=== PATIENT | male | born 1990 | race African-American/Black ===

== ENCOUNTER 2017-07-26 13:54 | Emergency (ER) | payer OTHER ==
[2017-07-26] MEDS ORDERED: Ketorolac INJ* 30 MG/ML 1 ML VIAL IV PUSH ONE (14:16)
--- NOTE | 2017-07-26 14:48 | RAD ---
Indication: Chest pain. Single frontal view of the chest performed at 1420 was reviewed. No prior study is available for comparison. No mediastinal shift is noted. Heart is of normal size and configuration. Lung flores appear clear. IMPRESSION: NO ACTIVE CARDIOPULMONARY DISEASE IS NOTED.
[2017-07-26 14:53] LABS: Hematocrit 44 % (42-52); Hemoglobin 14.8 g/dl (14.0-18.0); Mean Corpuscular HGB Conc 34 g/dl (31-36); Mean Corpuscular Hemoglobin 27 pg (27-31); Mean Corpuscular Volume 81 fL (80-94); Mean Platelet Volume 7 um3 (7.4-10.4); Red Blood Count 5.42 10^6/ul (4.0-5.4); Red Cell Distribution Width 13 % (10.5-15); White Blood Count 8.4 10^3/ul (3.5-10.8)
[2017-07-26 15:14] LABS: Albumin 3.9 g/dL (3.2-5.2); BUN/Creatinine Ratio 10.8 (8-20); Calcium 9.6 mg/dL (8.6-10.3); EGFR African American 111.8 (>60); Globulin 2.9 g/dL (2-4); Potassium 4.2 mmol/L (3.5-5.0); Total Bilirubin 1.7 mg/dL (0.2-1.0); Total Protein 6.8 g/dL (6.4-8.9)
[2017-07-26 18:07] VITALS: BP 122/85
--- NOTE | 2017-07-26 18:53 | ED ---
Estiven Weathers Angela, scribed for Misael Anthony MD on 07/26/17 at 1412 . HPI Chest Pain - HPI Summary HPI Summary: This pt is a 27 y/o male presenting to [facility] c/o mid sternal chest pain today. Pt reports back pain with radiation to his chest. Pt notes that his pain is aggravated with laughing, taking a deep breath, and movement. Pt describes his pain as sharp when moving. With rest, pt describes his pain as discomfort and chest pressure. He denies SOB, abd pain. Pt denies doing any heavy lifting. He states he has been running lately and has not experienced any chest pain while running. Pt denies any PMHx. - History of Current Complaint Chief Complaint: EDChestPainROMI Time Seen by Provider: 07/26/17 14:10 Hx Obtained From: Patient Onset/Duration: Started Days Ago, Atraumatic, Still Present Timing: Lasting Days Initial Severity: Moderate Current Severity: Moderate Pain Intensity: 5 Pain Scale Used: 0-10 Numeric Chest Pain Location: Mid Sternal - Allergy/Home Medications Allergies/Adverse Reactions: Allergies Allergy/AdvReac Type Severity Reaction Status Date / Time No Known Allergies Allergy Verified 07/26/17 14:58 PMH/Surg Hx/FS Hx/Imm Hx Endocrine/Hematology History: Denies: Hx Diabetes Cardiovascular History: Denies: Hx Hypertension Infectious Disease History: No Infectious Disease History: Denies: Traveled Outside the [place] in Last 30 Days - Family History Known Family History: Positive: Hypertension - grandmother - Social History Alcohol Use: Occasionally Substance Use Type: Reports: None Smoking Status (MU): Never Smoked Tobacco Review of Systems Negative: Fever, Chills Positive: Chest Pain Negative: Shortness Of Breath Positive: Other - back pain All Other Systems Reviewed And Are Negative: Yes Physical Exam - Summary Physical Exam Summary: VITAL SIGNS: Reviewed. GENERAL: Patient is a well-developed and nourished male who is lying comfortable in the stretcher. Patient is not in any acute respiratory distress. HEAD AND FACE: No signs of trauma. No ecchymosis, hematomas or skull depressions. No sinus tenderness. EYES: PERRLA, EOMI x 2, No injected conjunctiva, no nystagmus. EARS: Hearing grossly intact. Ear canals and tympanic membranes are within normal limits. MOUTH: Oropharynx within normal limits. NECK: Supple, trachea is midline, no adenopathy, no JVD, no carotid bruit, no c- spine tenderness, neck with full ROM. CHEST: Symmetric. There is reproducible chest pain at palpation. LUNGS: Clear to auscultation bilaterally. No wheezing or crackles. CVS: Regular rate and rhythm, S1 and S2 present, no murmurs or gallops appreciated. ABDOMEN: Soft, non-tender. No signs of distention. No rebound no guarding, and no masses palpated. Bowel sounds are normal. EXTREMITIES: FROM in all major joints, no edema, no cyanosis or clubbing. NEURO: Alert and oriented x 3. No acute neurological deficits. Speech is normal and follows commands. SKIN: Dry and warm Triage Information Reviewed: Yes Vital Signs On Initial Exam: Initial Vitals Temp Pulse Resp BP Pulse Ox 97.8 F 88 100 139/81 100 07/26/17 13:58 07/26/17 13:58 07/26/17 13:58 07/26/17 13:58 07/26/17 13:58 Vital Signs Reviewed: Yes Diagnostics - Vital Signs Vital Signs Temp Pulse Resp BP Pulse Ox 07/26/17 13:58 97.8 F 88 100 139/81 100 - Laboratory Lab Results: Lab Results 07/26/17 07/26/17 07/26/17 Range/Units 14:44 14:44 14:44 WBC 8.4 (3.5-10.8) 10^3/ul RBC 5.42 H (4.0-5.4) 10^6/ul Hgb 14.8 (14.0-18.0) g/dl Hct 44 (42-52) % MCV 81 (80-94) fL MCH 27 (27-31) pg MCHC 34 (31-36) g/dl RDW 13 (10.5-15) % Plt Count 228 (150-450) 10^3/ul MPV 7 L (7.4-10.4) um3 Neut % (Auto) 67.4 (38-83) % Lymph % (Auto) 22.1 L (25-47) % Schleicher % (Auto) 9.3 H (1-9) % Eos % (Auto) 0.4 (0-6) % Baso % (Auto) 0.8 (0-2) % Absolute Neuts (auto) 5.6 (1.5-7.7) 10^3/ul Absolute Lymphs (auto) 1.8 (1.0-4.8) 10^3/ul Absolute Monos (auto) 0.8 (0-0.8) 10^3/ul Absolute Eos (auto) 0 (0-0.6) 10^3/ul Absolute Basos (auto) 0.1 (0-0.2) 10^3/ul Absolute Nucleated RBC 0.01 10^3/ul Nucleated RBC % 0.1 Sodium 137 (133-145) mmol/L Potassium 4.2 (3.5-5.0) mmol/L Chloride 104 (101-111) mmol/L Carbon Dioxide 30 (22-32) mmol/L Anion Gap 3 (2-11) mmol/L BUN 11 (6-24) mg/dL Creatinine 1.02 (0.67-1.17) mg/dL Est GFR ( Amer) 111.8 (>60) Est GFR (Non-Af Amer) 87.0 (>60) BUN/Creatinine Ratio 10.8 (8-20) Glucose 88 (70-100) mg/dL Calcium 9.6 (8.6-10.3) mg/dL Total Bilirubin 1.70 H (0.2-1.0) mg/dL AST 22 (13-39) U/L ALT 26 (7-52) U/L Alkaline Phosphatase 49 (34-104) U/L Total Creatine Kinase 228 H (10-223) U/L CK-MB (CK-2) 1.2 (0.6-6.3) ng/mL Troponin I 0.00 (<0.04) ng/mL B-Natriuretic Peptide 13 ( - 100) pg/mL Total Protein 6.8 (6.4-8.9) g/dL Albumin 3.9 (3.2-5.2) g/dL Globulin 2.9 (2-4) g/dL Albumin/Globulin Ratio 1.3 (1-3) Result Diagrams: 07/26/17 14:44 07/26/17 14:44 Lab Statement: Any lab studies that have been ordered have been reviewed, and results considered in the medical decision making process. - Radiology Chest XR Xray Interpretation: No Acute Changes - IMPRESSION: No active cardiopulmonary disease is noted. ED physician has reviewed this radiology report and agrees. Radiology Interpretation Completed By: Radiologist - EKG 1403 Cardiac Rate: NL - 65 bpm EKG Rhythm: Sinus Rhythm EKG Interpretation: early repolarization Re-Evaluation - Re-Evaluation First Eval Re-Evaluation Time: 17:32 Comment: I reviewed the lab and XR results with the pt. Chest Pain Course/Dx - Course Assessment/Plan: This pt is a 27 y/o male presenting to [facility] c/o mid sternal chest pain today. Pt reports back pain with radiation to his chest. Pt notes that his pain is aggravated with laughing, taking a deep breath, and movement. Pt describes his pain as sharp when moving. With rest, pt describes his pain as discomfort and chest pressure. He denies SOB, abd pain. Pt denies doing any heavy lifting. He states he has been running lately and has not experienced any chest pain while running. Pt denies any PMHx. Test results without any significant abnormalities except for CPK of 228. Chest XR is negative for an acute pathology. Pt was given Toradol and the symptoms improved. I believe the pts symptoms are secondary to musculoskeletal pain. Therefore, he will be discharged home with follow up from his PCP. Pt will be given a prescription for naproxen. Pt is hemodynamically stable, alert and oriented x3. - Chest Pain Differential Diagnosis/HQI/PQRI: ACS, Angina, CHF, Chest Wall, GI Disease, Lower Respiratory Infection - Diagnoses Provider Diagnoses: Musculoskeletal pain, Atypical chest pain Discharge - Discharge Plan Condition: Stable Disposition: HOME Prescriptions: Naproxen [Naproxen 500 mg] 500 mg PO Q8H PRN #30 tab PRN Reason: Pain Patient Education Materials: Musculoskeletal Pain (ED) Referrals: [facility] - Kishor BRUNO [Primary Care Provider] - Additional Instructions: Please follow up with your primary care provider. RETURN TO THE ED FOR ANY WORSENING SYMPTOMS. The documentation as recorded by the Estiven huang Angela accurately reflects the service I personally performed and the decisions made by me, Misael Anthony MD.
== END 2017-07-26 18:08 | disposition home or self-care (01) ==
LOC: ED 13:54
DX: R07.89 Other chest pain (principal); M79.1 Myalgia
CPT/HCPCS: 36415; 71010; 80053; 82550; 82553; 83880; 84484; 85025; 86703; 93005; 96374; 99283; J1885

== ENCOUNTER → 2018-07-24 11:24 | Emergency (ER) | payer OTHER ==
[~2018-07-24 11:24] MED LIST: Iohexol 300* (CONTRAST) 10 ML SDV IV ONE; Ketorolac INJ* 30 MG/ML 1 ML VIAL IV PUSH ONE; NS 0.9% 1000 ML* 1,000 ML IV ONE; Ondansetron INJ* 2 MG/ML VIAL IV ONE; Tamsulosin CAP* 0.4 MG PO ONE
[2018-07-24 13:07] LABS: ABS Basophils 0 10^3/ul (0-0.2); ABS Eosinophils 0 10^3/ul (0-0.6); ABS Lymphocytes 0.7 10^3/ul (1.0-4.8); ABS Monocytes 0.5 10^3/ul (0-0.8); ABS Neutrophils 9.7 10^3/ul (1.5-7.7); ABS Nucleated RBC 0.1 10^3/ul; Eosinophil % 0.1 % (0-6); Hematocrit 47 % (42-52); Hemoglobin 15.6 g/dl (14.0-18.0); Lymphocyte % 6.4 % (25-47); Mean Corpuscular HGB Conc 34 g/dl (31-36); Mean Corpuscular Hemoglobin 27 pg (27-31); Mean Corpuscular Volume 81 fL (80-94); Mean Platelet Volume 6.6 um3 (7.4-10.4); Nucleated Red Blood Cells % 0.5; Platelet Count 289 10^3/ul (150-450); Red Blood Count 5.76 10^6/ul (4.00-5.40); Red Cell Distribution Width 13 % (10.5-15)
[2018-07-24 13:25] LABS: EGFR Non-African American 78.3 (>60)
--- NOTE | 2018-07-24 16:53 | ED ---
GI/ HPI - HPI Summary HPI Summary: 28-year-old male presents with abdominal pain since morning. He states he woke up out of sleep. States he last ate last night. He admits to decreased appetite. he admits to nausea vomiting. he states that he felt warm this morning. No diarrhea or constipation. He admits to some pain with urination. He has history of kidney stones. Denies any flank pain. Denies any testicular pain. Pain started periumbilically moved to his right lower quadrant. No previous belly surgeries. Has no medical conditions. Hasn't taking anything for his pain. - History of Current Complaint Chief Complaint: EDAbdPain Time Seen by Provider: 07/24/18 16:21 Stated Complaint: ABD PAIN Pain Intensity: 5 - Allergy/Home Medications Allergies/Adverse Reactions: Allergies Allergy/AdvReac Type Severity Reaction Status Date / Time No Known Allergies Allergy Verified 07/24/18 11:55 PMH/Surg Hx/FS Hx/Imm Hx Endocrine/Hematology History: Denies: Hx Diabetes Cardiovascular History: Denies: Hx Hypertension Infectious Disease History: No Infectious Disease History: Denies: Traveled Outside the in Last 30 Days - Family History Known Family History: Positive: Hypertension - grandmother - Social History Alcohol Use: Occasionally Alcohol Amount: on weekends 4/drinks avg Substance Use Type: Reports: None Smoking Status (MU): Never Smoked Tobacco Review of Systems Negative: Fever Negative: Chest Pain Negative: Shortness Of Breath Positive: Abdominal Pain, Vomiting, Nausea All Other Systems Reviewed And Are Negative: Yes Physical Exam Triage Information Reviewed: Yes Vital Signs On Initial Exam: Initial Vitals Temp Pulse Resp BP Pulse Ox 97.4 F 58 16 141/75 100 07/24/18 11:51 07/24/18 11:51 07/24/18 11:51 07/24/18 11:51 07/24/18 11:51 Vital Signs Reviewed: Yes Appearance: Positive: Well-Appearing Skin: Positive: Warm, Dry Head/Face: Positive: Normal Head/Face Inspection Eyes: Positive: Normal, Conjunctiva Clear ENT: Positive: Pharynx normal Respiratory/Lung Sounds: Positive: Clear to Auscultation, Breath Sounds Present Cardiovascular: Positive: Normal, RRR Abdomen Description: Positive: Soft, Other: - tenderness in right lower abd, pos Bowel Sounds: Positive: Present Musculoskeletal: Positive: Normal Neurological: Positive: Normal Psychiatric: Positive: Normal Diagnostics - Vital Signs Vital Signs Temp Pulse Resp BP Pulse Ox 07/24/18 14:59 98.4 F 62 20 143/87 100 07/24/18 11:51 97.4 F 58 16 141/75 100 - Laboratory Lab Results: Lab Results 07/24/18 07/24/18 07/24/18 Range/Units 12:59 12:59 12:59 WBC 11.0 H (3.5-10.8) 10^3/ul RBC 5.76 H (4.00-5.40) 10^6/ul Hgb 15.6 (14.0-18.0) g/dl Hct 47 (42-52) % MCV 81 (80-94) fL MCH 27 (27-31) pg MCHC 34 (31-36) g/dl RDW 13 (10.5-15) % Plt Count 289 (150-450) 10^3/ul MPV 6.6 L (7.4-10.4) um3 Neut % (Auto) 88.2 H (38-83) % Lymph % (Auto) 6.4 L (25-47) % Bertie % (Auto) 4.9 (0-7) % Eos % (Auto) 0.1 (0-6) % Baso % (Auto) 0.4 (0-2) % Absolute Neuts (auto) 9.7 H (1.5-7.7) 10^3/ul Absolute Lymphs (auto) 0.7 L (1.0-4.8) 10^3/ul Absolute Monos (auto) 0.5 (0-0.8) 10^3/ul Absolute Eos (auto) 0 (0-0.6) 10^3/ul Absolute Basos (auto) 0 (0-0.2) 10^3/ul Absolute Nucleated RBC 0.1 10^3/ul Nucleated RBC % 0.5 Sodium 139 (135-145) mmol/L Potassium 4.0 (3.5-5.0) mmol/L Chloride 106 (101-111) mmol/L Carbon Dioxide 28 (22-32) mmol/L Anion Gap 5 (2-11) mmol/L BUN 15 (6-24) mg/dL Creatinine 1.11 (0.67-1.17) mg/dL Est GFR ( Amer) 94.8 (>60) Est GFR (Non-Af Amer) 78.3 (>60) BUN/Creatinine Ratio 13.5 (8-20) Glucose 105 H (70-100) mg/dL Lactic Acid 1.0 (0.5-2.0) mmol/L Calcium 9.8 (8.6-10.3) mg/dL Total Bilirubin 1.20 H (0.2-1.0) mg/dL AST 28 (13-39) U/L ALT 32 (7-52) U/L Alkaline Phosphatase 67 (34-104) U/L C-Reactive Protein < 1.00 (<8.01) mg/L Total Protein 7.0 (6.4-8.9) g/dL Albumin 4.1 (3.2-5.2) g/dL Globulin 2.9 (2-4) g/dL Albumin/Globulin Ratio 1.4 (1-3) Lipase 17 (11.0-82.0) U/L Result Diagrams: 07/24/18 12:59 07/24/18 12:59 Lab Statement: Any lab studies that have been ordered have been reviewed, and results considered in the medical decision making process. - CT abd CT Interpretation Completed By: ED Physician Summary of CT Findings: IMPRESSION: #. Mild RIGHT hydronephrosis and delayed RIGHT pyelogram is traced to a 3 mm stone at the. distal RIGHT ureter approximate 1 cm from the ureterovesicular junction. #. Normal appendix documented. Re-Evaluation - Re-Evaluation First Eval Re-Evaluation Time: 18:02 Change: Improved Comment: feeling better after toradol GIGU Course/Dx - Course Course Of Treatment: 28-year-old male presents with abdominal pain since morning. He states he woke up out of sleep. States he last ate last night. He admits to decreased appetite. he admits to nausea vomiting. he states that he felt warm this morning. No diarrhea or constipation. He admits to some pain with urination. He has history of kidney stones. Denies any flank pain. Denies any testicular pain. Pain started periumbilically moved to his right lower quadrant. No previous belly surgeries. Has no medical conditions. Hasn' t taking anything for his pain. On exam tenderness right lower quadrant. Positive Rovsing sign. wbc elevated. CRP normal. urine shows blood and probably contaminanent. CT shows 3mm stone. patient feeling better after toradol. will discharge with percocet and flomax. told to follow up with urology. patient understand and agrees with plan. - Diagnoses Differential Diagnoses - Male: Appendicitis, Ureteral Calculi, Urinary Tract Infection Provider Diagnoses: Ureteral calculi Discharge - Sign-Out/Discharge Documenting (check all that apply): Patient Departure - Discharge Plan Condition: Good Disposition: HOME Prescriptions: Ondansetron ODT TAB* [Zofran 4 MG Odt TAB*] 4 mg PO Q6H PRN #12 tab.odt PRN Reason: Nausea oxyCODONE/Acetamin 5/325 MG* [Percocet 5/325 TAB*] 1 tab PO Q6H PRN #16 tab MDD 4 PRN Reason: Pain Tamsulosin CAP* [Flomax CAP*] 0.4 mg PO DAILY #7 cap Patient Education Materials: Flank Pain (ED) Referrals: [facility] - Kishor RBUNO [Primary Care Provider] - Chino Peters MD [Medical Doctor] - Additional Instructions: Take ibuprofen every 6 hours and percocet as needed every 6 hours Take Zofran every 6 hours for nausea as needed Take Flomax daily starting tomorrow, first dose given in ED until stone expelled , make sure stand up slowly Follow up with urology, call office tomorrow for appointment Strain urine until collect stone Return to ED if unable to manage pain at home, develop fever, or any new or worsening symptoms - Billing Disposition and Condition Condition: GOOD Disposition: Home
[2018-07-24 17:25] LABS: Urine Appearance Clear; Urine Blood 1+ (Negative); Urine Color Yellow; Urine Ketones Negative (Negative); Urine Protein 1+(30 mg/dL) (Negative); Urine Red Blood Cell 3+(>10/hpf) (Absent); Urine Urobilinogen Negative (Negative); Urine White Blood Cell 1+(6-10/hpf) (Absent)
--- NOTE | 2018-07-24 17:46 | RAD ---
INDICATION: RIGHT lower quadrant pain. Nausea and vomiting. Assess for appendicitis. COMPARISON: No relevant prior exams available on the [facility] [place] PACS for comparison. TECHNIQUE: Multidetector CT images were obtained from the lung bases to the ischial tuberosities with 143 mL Omnipaque 300 IV and oral contrast. Multiplanar reformation. REPORT: VISUALIZED INFERIOR THORAX: Unremarkable visualized inferior thorax. LIVER / GALLBLADDER / PANCREAS / SPLEEN: Unremarkable liver, gallbladder, pancreas, spleen. ALIMENTARY TRACT: No CT abnormality of the upper GI, small bowel, infra cecal appendix, or colon. Negative for ascites or free air. Tiny fat-containing umbilical hernia without inflammatory change. MESENTERIC: RIGHT lower quadrant mesenteric lymph nodes measure up to 0.9 cm short axis within normal limits. ADRENAL / GENITOURINARY: Normal adrenal glands. Mild RIGHT hydronephrosis and delayed RIGHT pyelogram is traced to a 3 mm stone at the distal RIGHT ureter approximate 1 cm from the ureterovesicular junction. No additional conspicuous urolithiasis. Associated mild RIGHT periureteral inflammatory stranding. No focal renal lesions evident. Largely decompressed urinary bladder without suspicious finding. RETROPERITONEAL: Negative for lymphadenopathy. VASCULAR: Normal diameter abdominal aorta and iliac arteries. Physiologic distention of the IVC. BONES: Negative for suspicious osseous lesions. SOFT TISSUE: Unremarkable. IMPRESSION: #. Mild RIGHT hydronephrosis and delayed RIGHT pyelogram is traced to a 3 mm stone at the distal RIGHT ureter approximate 1 cm from the ureterovesicular junction. #. Normal appendix documented.
[2018-07-24 18:20] VITALS: BP 112/78
== END | disposition home or self-care (01) ==
LOC: ED 11:24
DX: N13.2 Hydronephrosis with renal and ureteral calculous obstruction (principal); Z87.442 Personal history of urinary calculi
CPT/HCPCS: 36415; 74177; 80053; 81003; 81015; 83605; 83690; 85025; 86140; 87086; 96374; 96375; 99283; J1885; J2405; Q9967